=== PATIENT | male | born 1985 | race American Indian/Alaskan Native ===

== ENCOUNTER 2017-04-12 06:16 | Emergency (ER) | payer OTHER ==
[~2017-04-12] VITALS: Ht 170.2 cm; Wt 68.0 kg
[2017-04-12] MEDS ORDERED: Hair, Skin & N1 EACH PO (06:57)
[2017-04-12] MEDS ORDERED: CYCL10 PO (07:30)
== END 2017-04-12 07:35 | disposition home or self-care (01) ==
LOC: ER 06:16
DX: T14.90XA Injury, unspecified, initial encounter (principal); M54.5 Low back pain; Z88.5 Allergy status to narcotic agent; Z87.891 Personal history of nicotine dependence; V49.49XA Driver injured in collision with other motor vehicles in traffic accident, initial encounter; Y92.411 Interstate highway as the place of occurrence of the external cause
CPT/HCPCS: 72100; 99283

== ENCOUNTER 2018-09-03 20:42 | Emergency (ER) | payer OTHER ==
[~2018-09-03] VITALS: Ht 170.2 cm; Wt 65.8 kg
[~2018-09-03 20:42] MED LIST: CYCL10 PO; Hair, Skin & N1 EACH PO
== END 2018-09-03 22:25 | disposition home or self-care (01) ==
LOC: ER 20:42
DX: S90.455A Superficial foreign body, left lesser toe(s), initial encounter (principal); W45.8XXA Other foreign body or object entering through skin, initial encounter; Z88.5 Allergy status to narcotic agent; Z79.899 Other long term (current) drug therapy; Z87.891 Personal history of nicotine dependence
CPT/HCPCS: 10120; 99282-25